=== PATIENT | male | born 1975 | race Caucasian/White ===

== ENCOUNTER 2017-02-12 07:52 | Emergency (ER) | payer OTHER ==
[~2017-02-12] VITALS: Ht 165.1 cm; Wt 91.0 kg
[2017-02-12 07:56] VITALS: PULSE 80; TEMP 36.8; O2SAT 96; Ht 165.1 cm; Wt 91.0 kg
[2017-02-12] MEDS ORDERED: AMPICILLIN/SULBACTAM SOD INJ 3,000 MG in SODIUM CHLORIDE 0.9% 100ML 100 ML IV ONE (09:00)
[2017-02-12 09:29] LABS: BASO % 0.2 %; BASO ABS # 0.02 K/uL (0-0.2); COMPLETE YES; EOS % 1.7 %; HEMATOCRIT 46.1 % (42-52); IG% 0.3 %; LYMPH % 12.9 %; LYMPH ABS # 1.37 K/uL (1.2-3.4); MEAN CELL VOLUME 94.5 fL (80-100); MEAN CORPUSCULAR HGB CONC 33.8 g/dl (32-36); MEAN PLATELET VOLUME 9.7 fL (7.4-10.4); MONO % 13.3 %; NEUT % 71.6 %; PLATELET COUNT 284 K/uL (130-400); RED BLOOD COUNT 4.88 M/uL (4.7-6.1); WHITE BLOOD COUNT 10.65 K/uL (4.8-10.8)
[2017-02-12] MEDS ORDERED: AMOX875T PO (09:45)
--- NOTE | 2017-02-12 09:46 | EMERGENCY ROOM VISIT NOTE ---
History First contact with patient: 07:58 Chief Complaint: FACIAL PAIN/INJURY Stated Complaint: SWOLLEN FACE History of Present Illness The patient is a 41 year old male who presents to the Emergency Room with complaints of facial swelling. The patient states that she has had issues with a right upper molar. He pulled the tooth out by himself due to pain. He states that he noticed swelling at the area last night and is concerned about infection. He complains of pain of the right upper jaw. The pain was sharp last night and is achy at this time. He has been taking [id number] medications for the pain. He denies any blurred vision, diplopia, neck pain, difficulty breathing or difficulty swallowing. He does not have a dentist. Review of Systems A complete 10 point review of systems was reviewed with the patient with pertinent positives and negatives as per history of present illness. All else were negative. Past Medical/Surgical History Medical Problems: (1) Asthma (2) Bronchitis Family History Diabetes mellitus Heart disease Hypertension Kidney disease Kidney stones Social History Smoking Status: Never Smoker Alcohol Use: occasionally Housing Status: lives with family Occupation Status: employed Current/Historical Medications Scheduled Amoxicillin & Pot Clavulanate (Augmentin 875-125 mg), 1 TAB PO BID Allergies Coded Allergies: No Known Allergies (Unverified , 02/12/17) Physical Exam Vital Signs Date Time Temp Pulse Resp B/P Pulse Ox O2 Delivery O2 Flow Rate FiO2 02/12/17 09:50 142/89 02/12/17 07:56 36.8 80 16 131/81 96 Room Air Physical Exam VITALS: Vitals are noted on the nurse's note and reviewed by myself. Vital signs stable. GENERAL: This is a 41-year-old male, in no acute distress, nondiaphoretic, well- developed well-nourished. SKIN: The skin was without rashes. EARS: External auditory canals clear, tympanic membranes pearly jefferson without erythema or effusion bilaterally. EYES: Pupils equal round and reactive to light and accommodation. Extraocular movements intact. MOUTH: Mucous membranes moist. There is poor dentist and noted. There is swelling and mild erythema of the right upper gums. FACE: There is mild right-sided facial edema over the right maxillary region. NECK: Supple without nuchal rigidity. No lymphadenopathy. No thyromegaly. Cervical spine is nontender. No JVD. HEART: Regular rate and rhythm without murmurs gallops or rubs. LUNGS: Clear to auscultation bilaterally without wheezes, rales or rhonchi. NEURO: Patient was alert and oriented to person place and time. Medical Decision & Procedures Laboratory Results 02/12/17 09:00 Red Blood Count 4.88, Mean Corpuscular Volume 94.5, Mean Corpuscular Hemoglobin 32.0, Mean Corpuscular Hemoglobin Concent 33.8, Mean Platelet Volume 9.7, Neutrophils (%) (Auto) 71.6, Lymphocytes (%) (Auto) 12.9, Monocytes (%) (Auto) 13.3, Eosinophils (%) (Auto) 1.7, Basophils (%) (Auto) 0.2, Neutrophils # (Auto ) 7.63, Lymphocytes # (Auto) 1.37, Monocytes # (Auto) 1.42, Eosinophils # (Auto ) 0.18, Basophils # (Auto) 0.02 Test 02/12/17 09:00 White Blood Count 10.65 K/uL (4.8-10.8) Red Blood Count 4.88 M/uL (4.7-6.1) Hemoglobin 15.6 g/dL (14.0-18.0) Hematocrit 46.1 % (42-52) Mean Corpuscular Volume 94.5 fL (80-100) Mean Corpuscular Hemoglobin 32.0 pg (25-34) Mean Corpuscular Hemoglobin Concent 33.8 g/dl (32-36) Platelet Count 284 K/uL (130-400) Mean Platelet Volume 9.7 fL (7.4-10.4) Neutrophils (%) (Auto) 71.6 % Lymphocytes (%) (Auto) 12.9 % Monocytes (%) (Auto) 13.3 % Eosinophils (%) (Auto) 1.7 % Basophils (%) (Auto) 0.2 % Neutrophils # (Auto) 7.63 K/uL (1.4-6.5) Lymphocytes # (Auto) 1.37 K/uL (1.2-3.4) Monocytes # (Auto) 1.42 K/uL (0.11-0.59) Eosinophils # (Auto) 0.18 K/uL (0-0.5) Basophils # (Auto) 0.02 K/uL (0-0.2) RDW Standard Deviation 45.8 fL (36.4-46.3) RDW Coefficient of Variation 13.2 % (11.5-14.5) Immature Granulocyte % (Auto) 0.3 % Immature Granulocyte # (Auto) 0.03 K/uL (0.00-0.02) Medications Administered Medications (Trade) Dose Ordered Sig/Deep Route Start Time Stop Time Status Last Admin Dose Admin Ampicillin Sodium/ Sulbactam Sodium/ Sodium Chloride (Unasyn Inj/Nss 100ml) 108 ml @ 200 mls/hr ONE ONCE IV 02/12/17 09:00 02/12/17 09:32 DC 02/12/17 09:06 200 MLS/HR Medical Decision Differential diagnosis includes dental abscess, facial cellulitis, among others. The patient was evaluated as above. He does have some mild right-sided facial edema. There is nothing to suggest Jaswinder angina or a severe cellulitis. A CBC was drawn and the patient was given one dose of Unasyn. He will be placed on Augmentin and will need to follow-up with a dentist for definitive care. He was instructed to return here if he has worsening swelling, fevers, difficulty swallowing or any 30/concerning symptoms. He verbalized understanding of my assessment and treatment plan and was discharged home in good condition. Impression Primary Impression: Dental abscess Departure Information Dispostion Home / Self-Care Condition GOOD Prescriptions Amoxicillin & Pot Clavulanate (Augmentin 875-125 mg) 1 Tab Tab 1 TAB PO BID for 10 Days, #20 TAB Prov: Darlene Rouse ., AKASH 02/12/17 Referrals No Doctor, Assigned (PCP) Forms HOME CARE DOCUMENTATION FORM, IMPORTANT VISIT INFORMATION Patient Instructions My [facility] Additional Instructions You have been treated in the Emergency Department for a dental infection. You were prescribed Augmentin to be taken twice daily as prescribed. This is an antibiotic. All antibiotics have the potential to cause diarrhea. Stop this medication and contact a medical provider if you were to develop any significant adverse side effects including: wheezing, shortness of breath, passing out, vomiting, or a diffuse rash. Always take antibiotics as directed and COMPLETE the ENTIRE course regardless of the improvement of your symptoms. For pain control, you can use the following ehkl-vio-odgjkyz medicines (if >12 yo): - Regular strength (325mg/tab) Tylenol (acetaminophen) 2 tabs every 4-6 hours as needed. Do not exceed 12 tablets in a 24 hour period. Avoid taking more than 4 grams (4000 mg) of Tylenol per day. This includes any other sources of acetaminophen you may take on a regular basis. - Regular strength (200 mg/tab) Advil (ibuprofen) 1-2 tabs every 4-6 hours as needed. Do not exceed a dose of 3200 mg per day. Refrain from smoking cigarettes or using chewing tobacco until you have been evaluated by your dentist. Keeping beverages lukewarm and consuming soft foods can decrease your pain. Warm compresses over the affected area may offer some relief. You MUST seek evaluation of your dental pain by a dentist following your visit to the Emergency Department. The Emergency Department is not capable of treating dental issues long-term. You should call your dentist as soon as possible to make an appointment for evaluation of your dental pain. Follow up with Dr. Forbes [phone] [address] Return to the emergency department if you develop the following symptoms despite treatment course outlined above: fever, intractable pain, increased redness, swelling, or purulent discharge.
[2017-02-12 09:50] VITALS: BP 142/89
== END 2017-02-12 09:57 | disposition home or self-care (01) ==
LOC: C.EDB 07:53 → C.EDA 09:57
DX: K04.7 Periapical abscess without sinus (principal); J45.909 Unspecified asthma, uncomplicated; Z83.3 Family history of diabetes mellitus; Z82.49 Family history of ischemic heart disease and other diseases of the circulatory system; Z84.1 Family history of disorders of kidney and ureter

== ENCOUNTER 2025-06-14 22:44 | Observation (INO) ==
[2025-06-14] MEDS ORDERED: ONDANSETRON INJ 2 MG/ML 2 ML VIAL IV PRN (23:09)
[2025-06-14] MEDS ORDERED: ACETAMINOPHEN 1000 MG/100 ML IV IV PRN (23:09)
[2025-06-14] MEDS ORDERED: ALBUT/IPRATROP 3MG/0.5MG NEB 3 ML VIAL NEB PRN (23:15)
--- NOTE | 2025-06-14 23:15 | History & Physical Report ---
Date of Service June 14, 2025 Assessment & Plan (1) Food impaction of esophagus: (2) Asthma: Plan The patient is a 50-year-old male with a past medical history including asthma, bronchitis, obesity, and dysphagia. The patient presents as a transfer from [facility] emergency department with impacted esophageal food bolus. He has had intermittent issues with food and pain feeling like it is getting stuck over the past 10 years, but typically has improved with drinking fluids within 20 minutes or so. However, this current episode has been persistent since he ate a meal 2 days ago. It has worsened to the point that he presented to the ED at [facility]. At that facility, patient had CT scan of abdomen and pelvis with contrast, which showed postoperative changes of a prior cholecystectomy, hepatic steatosis, and nonpathologically enl arged portacaval gastroesophageal ligament lymph nodes. CT scan of the chest with contrast showed soft tissue density within the lumen of the distal esophagus consistent with a food bolus. Dr. Fernandez from [facility] emergency department spoke with the [facility] hospitalist service, and in conjunction with Dr. Harding from [facility] gastroenterology plans were made for patient to be transferred to [facility] for emergent endoscopy. Food impaction of esophagus- Initially presented to [facility] emergency department. He was transferred to [facility] to the [facility] hospitalist service, with plan for consult to gastroenterology for emergent EGD By his history, was present for 2 days. N.p.o. Acetaminophen 1 g IV every 8 hours as needed for mild pain or fever Zofran 4 mg IV every 6 hours as needed Pantoprazole 40 mg IV daily Ceftriaxone 2 g IV daily NSS + KCl 20 mEq at 100 mL/h x [address] Harding taking patient emergently to the OR Full liquid diet after procedure Review of [facility] laboratories showed a normal CBC with differential and chemistry profile Asthma- Does not regularly use an inhaler DuoNebs every 2 hours as needed CBC with differential, chemistry profile, magnesium, PT/INR/PTT in the a.m. History of Present Illness Chief Complaint: The patient presents as a transfer from [facility] emergency department with impacted esophageal food bolus. He has had intermittent issues with food and pain feeling like it is getting stuck over the past 10 years, but typically has improved with drinking fluids within 20 minutes or so. However, this current episode has been persistent since he ate a meal 2 days ago. It has worsened to the point that he presented to the ED at [facility]. At that facility, patient had CT scan of abdomen and pelvis with contrast, which showed postoperative changes of a prior cholecystectomy, hepatic steatosis, and nonpathologically enlarged portacaval gastroesophageal ligament lymph nodes. CT scan of the chest with contrast showed soft tissue density within the lumen of the distal esophagus consistent with a food bolus. Primary Care Provider: NO PCP The patient is a 50-year-old male with a past medical history including asthma, bronchitis, obesity, and dysphagia. The patient presents as a transfer from [facility] emergency department with impacted esophageal food bolus. He has had intermittent issues with food and pain feeling like it is getting stuck over the past 10 years, but typically has improved with drinking fluids within 20 minutes or so. However, this current episode has been persistent since he ate a meal 2 days ago. It has worsened to the point that he presented to the ED at [facility]. At that facility, patient had CT scan of abdomen and pelvis with contrast, which showed postoperative changes of a prior cholecystectomy, hepatic steatosis, and nonpathologically enlarged portacaval gastroesophageal ligament lymph nodes. CT scan of the chest with contrast showed soft tissue density within the lumen of the distal esophagus consistent with a food bolus. Dr. Fernandez from [facility] emergency department spoke with the [facility] hospitalist service, and in conjunction with Dr. Harding from [facility] gastroenterology plans were made for patient to be transferred to [facility] for emergent endoscopy. Allergies Allergy/AdvReac Type Severity Reaction Status Date / Time No Known Allergies Allergy Unverified 02/12/17 08:31 Past Med/Surg History Problem List (Updated 06/15/25 @ 01:18 by Sandor Steve MD) Encounter for pre-operative examination Food impaction of esophagus Medical History (Updated 06/15/25 @ 01:18 by Sandor Steve MD) Dental abscess Asthma Surgical History (Updated 06/15/25 @ 01:18 by Sandor Steve MD) Hx laparoscopic cholecystectomy Social History Smoking Status: Never smoker Second Hand Exposure: No; Do You Dip or Chew Tobacco: Yes; Tobacco Cessation Education Requested by Patient: No Hx Alcohol Use: Yes Alcohol type: beer Hx Substance Use: No Preferred Language: Martiniquais Communication Ability: Effective Mushroom Packer Required: No Beliefs That Will Affect Care: None Current Living Situation: Family Other Information That Helps Us Care for You: No Feels Safe at Home: Yes Safety Concerns: Feels Safe At This Time Assistive Devices: Glasses Review of Systems Review of Systems: The patient denies palpitations, lower extremity swelling, fevers, chills, sweats, vomiting, diarrhea , constipation, blood in urine or stool, dysuria, urinary frequency or urgency, lightheadedness, dizziness, headache, memory loss, loss of consciousness, rash, abnormal bruising or bleeding, imbalance, focal or generalized weakness, numbness or tingling in arms or legs, generalized arthralgias or myalgias, back or neck pain, or night sweats. The review of systems is otherwise negative other than for that already noted above, and at least 10 systems have been reviewed. Physical Exam Physical Exam: The patient is awake, alert and oriented 3, well developed and well nourished, normocephalic and atraumatic, lying in bed and in no acute distress. HEENT--PERRL, EOMI, mucous membranes and oropharynx mildly dry. Neck--supple. No JVD. No bruits. Thyroid normal, trachea midline, no adenopathy. Heart--normal S1 and S2. No murmurs, rubs or gallops. Lungs--decreased breath sounds throughout. No respiratory distress, no accessory muscle use. Abdomen--normal bowel sounds and soft. Nontender. Nondistended. Mildly obese Extremities--no cyanosis or clubbing. No edema. There are good distal pulses b/l. Dermatologic--normal skin turgor, normal color, no abnormal lymph nodes, no rash. Neurologic--cranial nerves II through XII grossly intact. Rheumatologic--normal range of motion. Psychiatric--normal affect. Code Status & VTE Plan Code Status Full code VTE Prophylaxis Plan VTE Prophylaxis will be ordered: Yes PG Care Time/CCT Total # of Minutes Spent Total Time Spent with Patient: Total time spent is greater than 50% in coordination of care (as documented) at patient's floor/unit and/or counseling patient: Coding Level of Care Code 18303 INT INP/OBS CARE MIN Diagnoses Food impaction of esophagus T18.128A; W44.F3XA Asthma J45.909
[2025-06-15] MEDS ORDERED: LIDOCAINE 2% 2 ML VIAL/AMP(20MG/ML) INFIL ONE (00:40)
[2025-06-15] MEDS ORDERED: SUCCINYLCHOLINE CHLORIDE 20 MG/ML 10 ML VIAL IV ONE (00:40)
[2025-06-15] MEDS ORDERED: PROPOFOL IV EMULSION 10 MG/ML 20 ML VIAL IV ONE (00:40)
--- NOTE | 2025-06-15 00:55 | Gastrointestinal Consultation ---
Date of Consultation June 15, 2025 Assessment & Plan (1) Food impaction of esophagus: Will plan on EGD emergently to remove food bolus. Patient is agreeable to the plan. Consent has been signed. (2) Asthma: History of Present Illness Reason for Consultation: Food impaction Attending Physician: Nigel Bermudez MD History of Present Illness Patient is a pleasant 50-year-old gentleman who developed a food impaction after eating chicken casserole on Friday. He states he has tried to eat and drink since then but cannot keep anything down. He was seen [facility] emergency room where he was given morphine, Valium, and glucagon with no improvement of his symptoms. He had a CT scan of his chest which did reveal an impacted food bolus in his distal esophagus. He was transferred to [facility] for an endoscopy. He states he has had intermittent food impactions in the past but these have always resolved spontaneously. He has never had an EGD. Allergies Allergy/AdvReac Type Severity Reaction Status Date / Time No Known Allergies Allergy Unverified 02/12/17 08:31 Review of Systems Gastrointestinal: Intermittent dysphagia Physical Exam Constitutional: Awake alert and oriented Eyes: PERRL, conjunctivae normal, anicteric sclerae Respiratory: normal respiratory effort, lungs clear to auscultation Cardiovascular: RRR, no murmur, no edema Gastrointestinal (Abdomen): normal bowel sounds, soft, nontender, no hepatosplenomegaly Skin: no rashes, warm and dry Neurologic: no deficits Results & Data Vital Signs (Past 12 Hours) Vital Signs Temp Pulse Resp BP Pulse Ox O2 Del Method 06/15/25 00:35 36.8 C 81 16 161/98 H 96 Room Air PG Care Time/CCT Total # of Minutes Spent Total Time Spent with Patient: Total time spent is greater than 50% in coordination of care (as documented) at patient's floor/unit and/or counseling patient: Coding Level of Care Code None Diagnoses Food impaction of esophagus T18.128A; W44.F3XA Asthma J45.909
[2025-06-15] MEDS: Patient's HEIGHT &/or WEIGHT Needed STA ×2 (01:01→01:02)
--- NOTE | 2025-06-15 01:14 | Anesthesiology Consultation ---
Date of Service June 15, 2025 Assessment & Plan (1) Encounter for pre-operative examination: Chart Review Chart Review: Acceptable Risk for Surgery History Surgery Operation Date: 06/15/25 01:00 Proposed Procedures p Esophagogastroduodenoscopy - Lucy Harding DO Height/Weight Height: 5 ft 5 in Weight: 112.491 kg Allergies Allergy/AdvReac Type Severity Reaction Status Date / Time No Known Allergies Allergy Unverified 02/12/17 08:31 Past Medical History Medical History (Updated 06/15/25 @ 01:18 by Sandor Steve MD) Dental abscess Asthma Past Surgical History Surgical History (Updated 06/15/25 @ 01:18 by Sandor Steve MD) Hx laparoscopic cholecystectomy Physical Exam Vital Signs Last Vital Signs Temp 36.8 C 06/15/25 00:35 Pulse 81 06/15/25 00:35 Resp 16 06/15/25 00:35 BP 161/98 H 06/15/25 00:35 Pulse Ox 96 06/15/25 00:35 O2 Del Method Room Air 06/15/25 00:35
[2025-06-15] MEDS ORDERED: ONDANSETRON INJ 2 MG/ML 2 ML VIAL IV PRN (01:22)
[2025-06-15] MEDS ORDERED: ATROPINE SULFATE 0.1 MG/ML 10ML SYR IV PRN (01:22)
[2025-06-15] MEDS ORDERED: PROMETHAZINE HCL 6.25 MG in SODIUM CHLORIDE 0.9% 50 ML IV PRN (01:22)
[2025-06-15] MEDS ORDERED: LABETALOL HCL IV 5 MG/ML 20ML IV PRN (01:22)
[2025-06-15] MEDS ORDERED: ONDANSETRON INJ 2 MG/ML 2 ML VIAL ONE (01:52)
[2025-06-15] MEDS ORDERED: DEXAMETHASONE SOD INJ 4 MG/ML VIAL ONE (01:52)
--- NOTE | 2025-06-15 02:18 | GI REPORT ---
[facility] Patient: CABRERA RUBIN : 1975 Sex at : Male Age: 50 Years Procedure: Upper GI endoscopy Date: 06/15/2025 Attending Physician: Lucy Harding DO Referring MD: Nigel Bermudez Indications: - Foreign body in the esophagus Medications: - Monitored Anesthesia Care Complications: - No immediate complications. Estimated Blood Loss: - Estimated blood loss: None. Procedure: - ASA Grade Assessment: II - A patient with mild systemic disease. - The heart rate, respiratory rate, oxygen saturations, blood pressure, adequacy of pulmonary ventilation, and response to care were monitored throughout the procedure. - The egd scope was introduced through the mouth and advanced to the second part of the duodenum. - The upper GI endoscopy was accomplished without difficulty. - The patient tolerated the procedure well. Findings: - Food was found in the lower third of the esophagus. Removal of food was accomplished using rat tooth forceps and a tripod. - LA Grade C (one or more mucosal breaks continuous between tops of 2 or more mucosal folds, less than 75% circumference) esophagitis with no bleeding was found 40 cm from the incisors. Biopsies were taken with a cold forceps for histology. - Localized moderate mucosal changes characterized by congestion were found in the lower third of the esophagus. Most likely secondary to impaction. There was some resistance to passing the scope beyond this region. Dilation not performed due to the inflammation. - Striped moderately erythematous mucosa without bleeding was found in the gastric antrum and in the gastric body. - The examined duodenum was normal. - The upper third of the esophagus and middle third of the esophagus were normal. Biopsies were taken with a cold forceps for histology. Impression: - Food in the lower third of the esophagus. Removal was successful. - LA Grade C reflux esophagitis with no bleeding. Biopsied. - Congested mucosa in the esophagus. - Erythematous mucosa in the antrum and gastric body. - Normal examined duodenum. - Normal upper third of esophagus and middle third of esophagus. Biopsied. Recommendation: - Discharge patient to home (ambulatory). - Soft diet for 2 weeks. - Continue present medications. - Use Protonix (pantoprazole) 40 mg PO daily. - Perform an upper GI endoscopy in 4 weeks to assess for stricture once edema resolves. Procedure Code(s): - 03461, Esophagogastroduodenoscopy, flexible, transoral; with removal of foreign body(s) - 63326, Esophagogastroduodenoscopy, flexible, transoral; with biopsy, single or multiple Diagnosis Code(s): - T18.108A, Unspecified foreign body in esophagus causing other injury, initial encounter - T18.128A, Food in esophagus causing other injury, initial encounter - K21.00, Gastro-esophageal reflux disease with esophagitis, without bleeding - K22.89, Other specified disease of esophagus - K31.89, Other diseases of stomach and duodenum CPT(R) - 2023 copyright [employer]. All Rights Reserved. The CPT codes, CCI edits and ICD codes generated are intended as suggestions and were generated based on input data. These codes are preliminary and upon chemical dependency professional review may be revised to meet current compliance and payer requirements. The provider is responsible for the final determination of appropriate codes, and modifiers. Lucy Harding, DO This document has been electronically signed. Note Initiated:06/15/2025 Note Completed:06/15/2025 2:17 AM \\[id number]
--- NOTE | 2025-06-15 02:43 | Anesthesiology Progress Note ---
Date of Service June 15, 2025 Anesthesia Post Procedure Vital Signs Vital Signs: Temp Pulse Resp BP Pulse Ox O2 Del Method O2 Flow Rate 06/15/25 02:39 36.5 C 102 H 14 125/91 94 Oxymask 5 06/15/25 02:29 36.9 C 107 H 23 145/86 H 93 Oxymask 5 06/15/25 00:35 36.8 C 81 16 161/98 H 96 Room Air Transfer of Care Handoff Completed per policy Notes Mental Status: alert / awake / arousable Patient Amnestic to Procedure: Yes Nausea / Vomiting: adequately controlled Pain: adequately controlled Airway Patency, RR, SpO2: stable & adequate BP & HR: stable & adequate Hydration State: stable & adequate Anesthetic Complications: no major complications apparent
[2025-06-15] MEDS: cefTRIAXone SODIUM 2,000 MG/50 ML BAG IV SCH (03:26)
[2025-06-15] MEDS: NSS + 20MEQ KCL 20 MEQ/1,000 ML BAG IV SCH (07:12)
[2025-06-15 07:34] VITALS: RESP 16
[2025-06-15 08:15] LABS: Hematocrit (blood only) 46.1 % (42.0-52.0); Hemoglobin 15.0 g/dl (14.0-18.0); Mean Corpuscular Hemoglobin 30.2 pg (25.0-34.0); Mean Corpuscular Volume 92.9 fL (80.0-100.0); Platelet Count 314 K/uL (130-400); RDW Standard Deviation 44.0 fL (36.4-46.3); Red Blood Count 4.96 M/uL (4.70-6.10); White Blood Count 12.31 K/ul (4.8-10.8)
[2025-06-15] MEDS: PANTOprazole 40 MG/10 ML SYR IV SCH (08:17)
[2025-06-15 08:29] LABS: Alanine Aminotransferase 40.0 U/L (7-52); Albumin Globulin Ratio 1.2 (0.9-2); Albumin Level 4.2 gm/dl (3.4-5.0); Alkaline Phosphatase 78.0 U/L (34-104); Anion Gap 8.0 (3-11); Bilirubin,Total 0.5 mg/dl (0.2-1.0); Blood Urea Nitrogen 13.0 mg/dl (6-23); Calcium 8.7 mg/dl (8.6-10.3); Carbon Dioxide 27.0 mmol/L (21-32); Chloride 103.0 mmol/L (98-107); Creatinine Clr Calc Pharmacy 134.2 ml/min; Globulin 3.5 gm/dl (2.5-4.0); Glucose 125.0 mg/dl (70-99(Fasting)); Magnesium 2.1 mg/dl (1.7-2.4); Potassium 4.2 mmol/L (3.5-5.1); Sodium 138.0 mmol/L (136-145); Total Protein 7.7 gm/dl (6.0-8.3)
[2025-06-15 08:35] LABS: Immature Granulocytes # (auto) 0.08 K/uL (0.01-0.20); Immature Granulocytes % (auto) 0.6 %
[2025-06-15 08:37] LABS: INR 1.0 (0.9-1.1); Partial Thromboplastin Time 26 Seconds (21-31); Prothrombin Time 11.1 Seconds (9.0-12.0)
[2025-06-15 11:05] VITALS: BP 134/85; TEMP 98.4; O2SAT 96
--- NOTE | 2025-06-15 14:28 | Discharge Summary ---
Discharge Summary Date of Service June 15, 2025 Principal Dx & Hospital Course #1 = Principal Diagnosis (1) Food impaction of esophagus: (2) Asthma: Plan The patient is a 50-year-old male with a past medical history including asthma, bronchitis, obesity, and dysphagia who presents as a transfer from [facility] emergency department with impacted esophageal food bolus. He has had intermittent issues with food and pain feeling like it is getting stuck over the past 10 years, but typically has improved with drinking fluids within 20 minutes or so. However, this current episode has been persistent since he ate a meal 2 days prior to admission. Patient had CT A/P with contrast, which showed postoperative changes of a prior cholecystectomy, hepatic steatosis, and non-pathologically enlarged portacaval gastroesophageal ligament lymph nodes. CT chest with contrast showed soft tissue density within the lumen of the distal esophagus consistent with a food bolus. He was transferred to [facility] and had emergent EGD. #Food impaction of esophagus-with mild leukocytosis from stress response. Had EGD and had removal of food bolus. Esophagus noted to be edematous and could not clearly identify stricture -continue on Protonix 40mg po daily -needs repeat EGD in 4 weeks as per GI to assess for stricture and need for dilation #Asthma-Does not regularly use an inhaler -f/u as outpt #Obesity BMI 41.3/Hepatic steatosis-needs weight loss, f/u PCP Dispo-stable for dc to home. He does not have a PCP but his wants to get him set up with her PCP, Dr. Porter Notes For Next Care Provider needs f/u EGD in 4 weeks Medication Changes From Visit Added Protonix 40mg po qAM Admission HPI Per Admitting Provider The patient is a 50-year-old male with a past medical history including asthma, bronchitis, obesity, and dysphagia. The patient presents as a transfer from [facility] emergency department with impacted esophageal food bolus. He has had intermittent issues with food and pain feeling like it is getting stuck over the past 10 years, but typically has improved with drinking fluids within 20 minutes or so. However, this current episode has been persistent since he ate a meal 2 days ago. It has worsened to the point that he presented to the ED at [facility]. At that facility, patient had CT scan of abdomen and pelvis with contrast, which showed postoperative changes of a prior cholecystectomy, hepatic steatosis, and nonpathologically enlarged portacaval gastroesophageal ligament lymph nodes. CT scan of the chest with contrast showed soft tissue density within the lumen of the distal esophagus consistent with a food bolus. Dr. Fernandez from [facility] emergency department spoke with the [facility] hospitalist service, and in conjunction with Dr. Harding from [facility] gastroenterology plans were made for patient to be transferred to [facility] for emergent endoscopy. Discharge Exam Constitutional WD/WN, vitals as above + obese Respiratory normal respiratory effort, lungs clear to auscultation Cardiovascular RRR, no murmur, no edema Gastrointestinal (Abdomen) normal bowel sounds, soft, nontender, no hepatosplenomegaly Psychiatric A+Ox3, euthymic affect Discharge Plan Discharge Items Patient Disposition: Home - Self-Care Reason For Visit: IMAPACTED FOOD BOLUS Discharge Diagnosis: Impacted food bolus Condition on Discharge: Good Activity: Resume your previous activity Non-emergency contact: Primary Care Provider and Ceo [employer] Call non-emergency contact if: you have any medication questions and your symptoms worsen Follow-up/Referrals: Evan Porter MD [Outside Practitioners] - (Follow up within 1-2 weeks) Lucy Harding DO [Physician] - (Please follow-up with GI in 4 weeks for repeat endoscopy to see if you need an esophageal dilation) Diet: Regular Diet Texture: Dental soft (bite-sized) Addtl Attending Provider Instructions: You were admitted with a food impaction in your esophagus which was removed by endoscopy. Please follow-up with GI in 4 weeks for a repeat endoscopy to see if you need dilation of your esophagus to prevent future food impactions. Please remain on a soft diet for 2 weeks. You should take Protonix once daily as an acid food tester as acid reflux can cause narrowing of the esophagus. Pending Studies at Discharge: No Stand-Alone Forms: My [facility] [employer], Smoking Cessation Medications and DC Order Prescriptions: New pantoprazole [Protonix] 40 mg tablet,delayed release (DR/EC) 40 mg PO DAILY Qty: 30 0RF Discharge Orders: Discharge Order (Routine); Ordered 06/15/25 Ordered By: Fany Taylor Admission Data Admit Date/Time: 06/15/25 00:08 Attending Provider: Fany Taylor Admit Provider: Nigel Bermudez Primary Care Provider: PCP,NO Other Providers: Lucy Harding Hospital Stay Data Consultations 06/14/25 23:09 Consult Gastroenterology Routine Procedures Performed Operation Date: 06/15/25 01:00 Actual Procedures p Esophagogastroduodenoscopy - Lucy Harding DO Pending Results Patient Have Any Pending Studies at Discharge: No Discharge Instructions Given to Patient (Per Discharging Provider) You were admitted with a food impaction in your esophagus which was removed by endoscopy. Please follow-up with GI in 4 weeks for a repeat endoscopy to see if you need dilation of your esophagus to prevent future food impactions. Please remain on a soft diet for 2 weeks. You should take Protonix once daily as an acid food tester as acid reflux can cause narrowing of the esophagus. Total Time Total Time Spent Total Time Spent (In Minutes): 35 min Total Time Includes: Examination of the Patient, Discharge Planning and Med ication Reconciliation Coding Level of Care Code 25679 INP/OBS DISCH >30 MIN Diagnoses Food impaction of esophagus T18.128A; [id number].F3XA Asthma J45.909
[2025-06-15 14:31] VITALS: PULSE 82
== END 2025-06-15 14:49 | disposition home or self-care (01) ==
LOC: 2N → SUATTDRO 06-15 00:08